=== PATIENT | female | born 1940 | race Caucasian/White ===

== ENCOUNTER 2023-05-01 01:06 | Emergency (ER) | payer OTHER ==
[~2023-05-01] VITALS: Ht 165.1 cm; Wt 61.2 kg
[2023-05-01 01:12] VITALS: BP_SYST 162
--- NOTE | 2023-05-01 01:12 | NUR ---
Triaged and placed patient in ER bed 8 for evaluation. Bed placed in lowest position with side rails up. Report given to [facility] RN for continuity of care. Instructed to notify ED staff for any changes in condition or worsening of symptoms while waiting to be seen by a provider. Patient verbalized understanding.
--- NOTE | 2023-05-01 01:23 | NUR ---
Dr. Hansen at bedside for evaluation.
--- NOTE | 2023-05-01 01:43 | NUR ---
Patient to xray via WC & network support technician.
[2023-05-01] MEDS ORDERED: IBUPROFEN 600 MG TABLET PO ONE (01:45)
--- NOTE | 2023-05-01 01:56 | NUR ---
Patient return to bed 8 from xray.
[2023-05-01] MEDS ORDERED: IBUPROFEN 600 MG TABLET ONE (01:59)
--- NOTE | 2023-05-01 02:00 | NUR ---
Patient medicated with Motrin 600 mg PO. Addendum: 05/01/23 at 0203 by [email or web address] Medication has not been verified by Pharmacy, but medication pulled for paticnt comfort.
--- NOTE | 2023-05-01 02:14 | NUR ---
Dr. Hansen at bedside discussing diagnostics & Tx plan. MD will discharge patient home.
[2023-05-01 02:22] VITALS: BP_SYST 156
--- NOTE | 2023-05-01 02:22 | NUR ---
DCI pavelne to patient. Patient acknowledges and understand DCI. Patient ambulated OTD in stable condition. Addendum: 05/01/23 at 0226 by [email or web address] Medication never verified and not on e-MAR.
== END 2023-05-01 02:22 | disposition home or self-care (01) ==
LOC: SED 01:06
DX: R07.81 Pleurodynia (principal); Z79.899 Other long term (current) drug therapy; W10.9XXA Fall (on) (from) unspecified stairs and steps, initial encounter; Y93.89 Activity, other specified; Y92.89 Other specified places as the place of occurrence of the external cause; Y99.8 Other external cause status
CPT/HCPCS: 71045; 71100; 99284

== ENCOUNTER 2023-12-03 11:14 | Emergency (ER) | payer OTHER ==
[~2023-12-03] VITALS: Ht 165.1 cm; Wt 72.6 kg
[2023-12-03 11:28] VITALS: BP_SYST 146; PULSE 60; RESP 20; TEMP 98.1; O2SAT 96
[2023-12-03] MEDS ORDERED: TRAM50TA2 PO (12:19)
[2023-12-03 12:28] VITALS: BP_SYST 157; PULSE 64; RESP 16; TEMP 97.4; O2SAT 99
== END 2023-12-03 12:26 | disposition home or self-care (01) ==
LOC: SED 11:14
DX: S80.02XA Contusion of left knee, initial encounter (principal); Z79.899 Other long term (current) drug therapy; W06.XXXA Fall from bed, initial encounter; Y93.89 Activity, other specified; Y92.89 Other specified places as the place of occurrence of the external cause; Y99.8 Other external cause status
CPT/HCPCS: 73564; 99283

== ENCOUNTER 2024-04-14 15:45 | Emergency (ER) | payer OTHER ==
[~2024-04-14] VITALS: Ht 165.1 cm; Wt 61.2 kg
[~2024-04-14 15:45] MED LIST: TRAM50TA2 PO
[2024-04-14 15:56] VITALS: BP_SYST 132; PULSE 63; RESP 16; TEMP 97.3; O2SAT 98
[2024-04-14 17:24] VITALS: BP_SYST 132; PULSE 63; RESP 16; TEMP 97.3; O2SAT 98
== END 2024-04-14 17:24 | disposition home or self-care (01) ==
LOC: SED 15:45
DX: S61.211A Laceration without foreign body of left index finger without damage to nail, initial encounter (principal); W26.0XXA Contact with knife, initial encounter; Y93.89 Activity, other specified; Y92.89 Other specified places as the place of occurrence of the external cause; Y99.8 Other external cause status
CPT/HCPCS: 99282